=== PATIENT | female | born 1945 | race Hispanic/Latino ===

== ENCOUNTER → 2017-10-18 | Outpatient (CLI) | payer OTHER | END | disposition home or self-care (01) | LOC: OIH 13:44 | PROVIDERS: ATTEND Internal Medicine Cardiovascular Disease | DX: Z13.6 Encounter for screening for cardiovascular disorders (principal) | CPT/HCPCS: 75571 ==

== ENCOUNTER 2023-09-27 06:18 | Day surgery (SDC) | payer MEDICARE ==
[2023-09-27] VITALS (11 sets, daily range): BP systolic 92–121; BP diastolic 39–50; PULSE 61–72; RESP 15–17
[~2023-09-27] VITALS: Ht 152.4 cm; Wt 43.1 kg
[~2023-09-27 06:18] MED LIST: CHOL500045 PO; DENO60DI SQ; FOLI1 PO; RITU1010I INJ; calcium PO
[2023-09-27] MEDS ORDERED: 0.9%NACL 1000ML 1,000 ML IV ONE (06:20)
[2023-09-27] MEDS ORDERED: PROPOFOL 10 MG/ML 20ML VIAL IV ONE (08:09)
== END 2023-09-27 09:45 | disposition home or self-care (01) ==
LOC: DAH 06:18
PROVIDERS: ATTEND Internal Medicine Gastroenterology
DX: K92.1 Melena (principal); K52.831 Collagenous colitis; K62.89 Other specified diseases of anus and rectum; K64.4 Residual hemorrhoidal skin tags; E78.2 Mixed hyperlipidemia; M81.0 Age-related osteoporosis without current pathological fracture; M19.90 Unspecified osteoarthritis, unspecified site; Z82.3 Family history of stroke; Z83.79 Family history of other diseases of the digestive system; Z79.899 Other long term (current) drug therapy; Z98.890 Other specified postprocedural states
CPT/HCPCS: 45380; J7030 ×2; J2704; A4620; A4215; A4223; A7002; A4222; A4221; A4663; A4606; J3490